=== PATIENT | male | born 1995 | race Caucasian/White ===

== ENCOUNTER 2018-01-02 15:15 | Emergency (ER) | payer OTHER ==
[2018-01-02 16:22] LABS: ABS Basophils 0 10^3/ul (0-0.2); ABS Eosinophils 0 10^3/ul (0-0.6); ABS Lymphocytes 1.3 10^3/ul (1.0-4.8); ABS Monocytes 0.5 10^3/ul (0-0.8); ABS Neutrophils 2.4 10^3/ul (1.5-7.7); ABS Nucleated RBC 0 10^3/ul; Eosinophil % 0.8 % (0-6); Hematocrit 45 % (42-52); Hemoglobin 15.7 g/dl (14.0-18.0); Lymphocyte % 31.4 % (25-47); Mean Corpuscular HGB Conc 35 g/dl (31-36); Mean Corpuscular Hemoglobin 32 pg (27-31); Mean Corpuscular Volume 91 fL (80-94); Mean Platelet Volume 8 um3 (7.4-10.4); Nucleated Red Blood Cells % 0.1; Platelet Count 180 10^3/ul (150-450); Red Blood Count 4.88 10^6/ul (4.0-5.4); Red Cell Distribution Width 13 % (10.5-15); White Blood Count 4.3 10^3/ul (3.5-10.8)
--- NOTE | 2018-01-02 16:48 | RAD ---
Indication: Right flank pain. CT of the abdomen and pelvis was performed without oral or IV contrast administration. Coronal and sagittal reconstructed images were obtained. The lung bases demonstrate no pleural fluid, nodules or masses. The heart demonstrates no pericardial effusion. The liver is normal in size. No focal lesions or intrahepatic ductal dilatation is noted. The spleen is normal. Pancreas demonstrates no mass or pancreatic duct dilatation. The common duct is not dilated. There is mild right hydronephrosis noted. There is a calculus in the distal right ureter likely measuring 5 mm just above the ureterovesicular junction. There is moderate degree of left hydronephrosis. A calculus is noted in the left renal collecting system measuring up to 5 mm. The distal left ureter is not dilated. Aorta and inferior vena cava are unremarkable. There are no dilated loops of bowel noted. The colon is filled with stool. Urinary bladder is otherwise unremarkable. The prostate is unremarkable. No free fluid is identified. IMPRESSION: There is suggestion of a calcification in the distal right ureter just above the ureterovesicular junction with mild right hydronephrosis. There is left hydronephrosis with a calculi in the left renal pelvis measuring 5 mm however this does not appear to be causing obstruction. The left renal pelvis appears to taper to normal size ureter distally. A UPJ obstruction is not excluded.
[2018-01-02 16:52] LABS: EGFR Non-African American 103.6 (>60)
[2018-01-02 17:51] LABS: Urine Appearance Cloudy; Urine Blood 3+ (Negative); Urine Ketones Negative (Negative); Urine Protein 2+(100 mg/dL) (Negative); Urine Specific Gravity 1.016 (1.010-1.030); Urine Urobilinogen Negative (Negative)
[2018-01-02 18:22] VITALS: BP 116/51
[2018-01-02 18:22] LABS: Urine Color Red
--- NOTE | 2018-01-03 14:11 | ED ---
Kourtney Castaneda Gabriel, scribed for Sunday Ro MD on 01/02/18 at 1550 . GI/ HPI - HPI Summary HPI Summary: This patient is a 22 year old M presenting to [facility] with a chief complaint of hematuria since this morning. The patient rates the pain 2/10 in severity. Patient reports light headedness and RLQ ABD pain. Patient denies BM trouble, dysuria, and nausea. Pt has a history of kidney stones but states his current pain is lower than usual and his hematuria is darker than usual. Last kidney stone was 2 months ago. Pt has had an appendectomy - History of Current Complaint Chief Complaint: EDFlankPain Time Seen by Provider: 01/02/18 15:30 Stated Complaint: URINATING BLOOD Hx Obtained From: Patient Onset/Duration: Still Present Timing: Constant, Lasting Hours Current Severity: Mild Pain Intensity: 2 Pain Radiates to: RLQ Associated Signs and Symptoms: Positive: Negative - BM trouble, dysuria, and nausea., Hematuria, Other: - light headedness and RLQ ABD pain. - Allergy/Home Medications Allergies/Adverse Reactions: Allergies Allergy/AdvReac Type Severity Reaction Status Date / Time No Known Allergies Allergy Verified 01/02/18 15:20 PMH/Surg Hx/FS Hx/Imm Hx Endocrine/Hematology History: Denies: Hx Anticoagulant Therapy, Hx Diabetes Cardiovascular History: Denies: Hx Aneurysm, Hx Angina History: Reports: Hx Kidney Stones - Surgical History Surgery Procedure, Year, and Place: Appendectomy Infectious Disease History: No Infectious Disease History: Denies: Traveled Outside the [place] in Last 30 Days - Family History Known Family History: Negative: Renal Disease, Respiratory Disease, Seizure Disorder - Social History Alcohol Use: Occasionally Hx Substance Use: No Substance Use Type: Reports: None Hx Tobacco Use: No Smoking Status (MU): Never Smoked Tobacco Review of Systems Gastrointestinal: Negative Positive: Abdominal Pain - RLQ pain . Negative: Nausea Positive: hematuria. Negative: dysuria Neurological: Other - light headedness All Other Systems Reviewed And Are Negative: Yes Physical Exam - Summary Physical Exam Summary: Appearance: The patient is well-nourished in no acute distress and in no acute pain. Skin: The skin is warm and dry and skin color reflects adequate perfusion. HEENT: The head is normocephalic and atraumatic. The pupils are equal and reactive. The conjunctivae are clear and without drainage. Nares are patent and without drainage. Mouth reveals moist mucous membranes and the throat is without erythema and exudate. The external ears are intact. The ear canals are patent and without drainage. The tympanic membranes are intact. Neck: the neck is supple with full range of motion and non-tender. There are no carotid bruits. There is no neck vein distension. Respiratory: Chest is non-tender. Lungs are clear to auscultation and breath sounds are symmetrical and equal. Cardiovascular: Heart is regular rate and rhythm. There is no murmur or rub auscultated. There is no peripheral edema and pulses are symmetrical and equal. Abdomen: The abdomen is soft with RLQ tenderness. There are normal bowel sounds heard in all four quadrants and there is no organomegaly palpated. Musculoskeletal: There is no back tenderness noted. Extremities are non-tender with full range of motion. There is good capillary refill. There is no peripheral edema or calf tenderness elicited. Neurological: Patient is alert and oriented to person, place and time. The patient has symmetrical motor strength in all four extremities. Cranial nerves are grossly intact. Deep tendon reflexes are symmetrical and equal in all four extremities. Psychiatric: The patient has an appropriate affect and does not exhibit any anxiety or depression. Triage Information Reviewed: Yes Vital Signs On Initial Exam: Initial Vitals Temp Pulse Resp BP Pulse Ox 98.2 F 78 18 123/66 98 01/02/18 15:18 01/02/18 15:18 01/02/18 15:18 01/02/18 15:18 01/02/18 15:18 Vital Signs Reviewed: Yes Diagnostics - Vital Signs Vital Signs Temp Pulse Resp BP Pulse Ox 01/02/18 15:18 98.2 F 78 18 123/66 98 - Laboratory Lab Results: Lab Results 01/02/18 01/02/18 01/02/18 Range/Units 16:05 16:05 16:05 WBC 4.3 (3.5-10.8) 10^3/ul RBC 4.88 (4.0-5.4) 10^6/ul Hgb 15.7 (14.0-18.0) g/dl Hct 45 (42-52) % MCV 91 (80-94) fL MCH 32 H (27-31) pg MCHC 35 (31-36) g/dl RDW 13 (10.5-15) % Plt Count 180 (150-450) 10^3/ul MPV 8 (7.4-10.4) um3 Neut % (Auto) 55.1 (38-83) % Lymph % (Auto) 31.4 (25-47) % Darke % (Auto) 12.0 H (1-9) % Eos % (Auto) 0.8 (0-6) % Baso % (Auto) 0.7 (0-2) % Absolute Neuts (auto) 2.4 (1.5-7.7) 10^3/ul Absolute Lymphs (auto) 1.3 (1.0-4.8) 10^3/ul Absolute Monos (auto) 0.5 (0-0.8) 10^3/ul Absolute Eos (auto) 0 (0-0.6) 10^3/ul Absolute Basos (auto) 0 (0-0.2) 10^3/ul Absolute Nucleated RBC 0 10^3/ul Nucleated RBC % 0.1 Sodium 138 (133-145) mmol/L Potassium 4.1 (3.5-5.0) mmol/L Chloride 103 (101-111) mmol/L Carbon Dioxide 30 (22-32) mmol/L Anion Gap 5 (2-11) mmol/L BUN 15 (6-24) mg/dL Creatinine 0.93 (0.67-1.17) mg/dL Est GFR ( Amer) 133.2 (>60) Est GFR (Non-Af Amer) 103.6 (>60) BUN/Creatinine Ratio 16.1 (8-20) Glucose 123 H (70-100) mg/dL Lactic Acid 0.7 (0.5-2.0) mmol/L Calcium 9.5 (8.6-10.3) mg/dL Total Bilirubin 0.70 (0.2-1.0) mg/dL AST 16 (13-39) U/L ALT 7 (7-52) U/L Alkaline Phosphatase 58 (34-104) U/L C-Reactive Protein < 1.00 (< 5.00) mg/L Total Protein 6.8 (6.4-8.9) g/dL Albumin 4.3 (3.2-5.2) g/dL Globulin 2.5 (2-4) g/dL Albumin/Globulin Ratio 1.7 (1-3) Lipase 16 (11.0-82.0) U/L Urine Color Urine Appearance Urine pH (5-9) Ur Specific Adah (1.010-1.030) Urine Protein (Negative) Urine Ketones (Negative) Urine Blood (Negative) Urine Nitrate (Negative) Urine Bilirubin (Negative) Urine Urobilinogen (Negative) Ur Leukocyte Esterase (Negative) Urine WBC (Auto) (Absent) Urine RBC (Auto) (Absent) Amorphous Crystals (Absent) Urine Bacteria (Absent) Urine Glucose (Negative) 01/02/18 Range/Units 17:33 WBC (3.5-10.8) 10^3/ul RBC (4.0-5.4) 10^6/ul Hgb (14.0-18.0) g/dl Hct (42-52) % MCV (80-94) fL MCH (27-31) pg MCHC (31-36) g/dl RDW (10.5-15) % Plt Count (150-450) 10^3/ul MPV (7.4-10.4) um3 Neut % (Auto) (38-83) % Lymph % (Auto) (25-47) % Darke % (Auto) (1-9) % Eos % (Auto) (0-6) % Baso % (Auto) (0-2) % Absolute Neuts (auto) (1.5-7.7) 10^3/ul Absolute Lymphs (auto) (1.0-4.8) 10^3/ul Absolute Monos (auto) (0-0.8) 10^3/ul Absolute Eos (auto) (0-0.6) 10^3/ul Absolute Basos (auto) (0-0.2) 10^3/ul Absolute Nucleated RBC 10^3/ul Nucleated RBC % Sodium (133-145) mmol/L Potassium (3.5-5.0) mmol/L Chloride (101-111) mmol/L Carbon Dioxide (22-32) mmol/L Anion Gap (2-11) mmol/L BUN (6-24) mg/dL Creatinine (0.67-1.17) mg/dL Est GFR ( Amer) (>60) Est GFR (Non-Af Amer) (>60) BUN/Creatinine Ratio (8-20) Glucose (70-100) mg/dL Lactic Acid (0.5-2.0) mmol/L Calcium (8.6-10.3) mg/dL Total Bilirubin (0.2-1.0) mg/dL AST (13-39) U/L ALT (7-52) U/L Alkaline Phosphatase (34-104) U/L C-Reactive Protein (< 5.00) mg/L Total Protein (6.4-8.9) g/dL Albumin (3.2-5.2) g/dL Globulin (2-4) g/dL Albumin/Globulin Ratio (1-3) Lipase (11.0-82.0) U/L Urine Color Red A Urine Appearance Cloudy Urine pH 7.0 (5-9) Ur Specific Adah 1.016 (1.010-1.030) Urine Protein 2+(100 mg/dl) H (Negative) Urine Ketones Negative (Negative) Urine Blood 3+ H (Negative) Urine Nitrate Negative (Negative) Urine Bilirubin Negative (Negative) Urine Urobilinogen Negative (Negative) Ur Leukocyte Esterase Negative (Negative) Urine WBC (Auto) 1+(6-10/hpf) H (Absent) Urine RBC (Auto) 3+(>10/hpf) H (Absent) Amorphous Crystals Present H (Absent) Urine Bacteria Absent (Absent) Urine Glucose Negative (Negative) Result Diagrams: 01/02/18 16:05 01/02/18 16:05 Lab Statement: Any lab studies that have been ordered have been reviewed, and results considered in the medical decision making process. - CT CT ABD/Pelvis CT Interpretation Completed By: Radiologist - There is suggestion of a calcification in the distal right ureter just above the ureterovesicular junction with mild right hydronephrosis. There is left hydronephrosis with a calculi in the left renal pelvis measuring 5 mm however this does not appear to be causing obstruction. The left renal pelvis appears to taper to normal size ureter distally. A UPJ obstruction is not excluded. Dr. Ro has reviewed this report. GIGU Course/Dx - Course Course Of Treatment: Mr. Avila preented with relatively mild RLQ pain. He has a history of kidney stones but didnt think this was bad enough to be a stone. He was found to have a 5mm right UVJ stone with some hydro. His U/A was equivocal. He was not interested in pain medications or antibiotics or even F/U with urology. He felt that he could pass it on his own. I expressed my concern that he should seek immediate care if he developed a fever or any new symptoms given his U/A result although I suspect it is not infected. - Diagnoses Provider Diagnoses: Kidney stones Discharge - Discharge Plan Condition: Stable Disposition: HOME Prescriptions: Tamsulosin CAP* [Flomax CAP*] 0.4 mg PO DAILY #7 cap traMADol TAB* [Ultram*] 50 mg PO Q6HR PRN #20 tab MDD 4 PRN Reason: Pain Patient Education Materials: Tramadol (By mouth), Tamsulosin (By mouth), Kidney Stones (ED) Referrals: [facility] [Primary Care Provider] - Arya Ledezma MD [Medical Doctor] - 4 Days Additional Instructions: Take ibuprofen as needed for pain. RETURN TO EMERGENCY DEPARTMENT FOR ANY NEW OR WORSENING SYMPTOMS The documentation as recorded by the Kourtney field Gabriel accurately reflects the service I personally performed and the decisions made by me, Sunday Ro MD.
== END 2018-01-02 18:21 | disposition home or self-care (01) ==
LOC: ED 15:15
DX: N13.2 Hydronephrosis with renal and ureteral calculous obstruction (principal); R31.9 Hematuria, unspecified
CPT/HCPCS: 36415; 74176; 80053; 81003; 81015; 83605; 83690; 85025; 86140; 99282

== ENCOUNTER 2018-10-17 13:24 | Emergency (ER) | payer OTHER ==
--- NOTE | 2018-10-17 13:54 | ED ---
Abdominal Pain/Male - HPI Summary HPI Summary: Pt is a 23 y/o male who presents to the ED c/o groin pain. The left groin pain radiates into his left hip. Pt has been feeling the intermittent discomfort for a few weeks, but the pain became worse today. He self-diagnosed a hernia in his left groin, because he can feel the hole and his organs. Pt can stick a finger in his hole. The pain is made worse by walking. He denies any urinary symptom or abnormal BMs. PMHx kidney stones. - History of Current Complaint Chief Complaint: EDAbdPain Stated Complaint: ABD PAIN Time Seen by Provider: 10/17/18 13:43 Hx Obtained From: Patient Onset/Duration: Gradual Onset, Lasting Weeks - 2-3, Worse Since Timing: Constant, Intermittent Severity Currently: Moderate Pain Intensity: 7 Pain Scale Used: 0-10 Numeric Location: Groin - left Radiates: Yes Radiates to: Other - left hip Aggravating Factor(s): Other: - walking Associated Signs And Symptoms: Positive: Negative - Allergies/Home Medications Allergies/Adverse Reactions: Allergies Allergy/AdvReac Type Severity Reaction Status Date / Time No Known Allergies Allergy Verified 10/17/18 13:32 PMH/Surg Hx/FS Hx/Imm Hx Endocrine/Hematology History: Denies: Hx Anticoagulant Therapy, Hx Diabetes Cardiovascular History: Denies: Hx Aneurysm, Hx Angina History: Reports: Hx Kidney Stones - Surgical History Surgery Procedure, Year, and Place: Appendectomy Infectious Disease History: No Infectious Disease History: Denies: Traveled Outside the [place] in Last 30 Days - Family History Known Family History: Negative: Renal Disease, Respiratory Disease, Seizure Disorder - Social History Alcohol Use: Occasionally Hx Substance Use: No Substance Use Type: Reports: None Hx Tobacco Use: No Smoking Status (MU): Never Smoked Tobacco Review of Systems Positive: Abdominal Pain. Negative: Other - abnormal BM Genitourinary: Negative All Other Systems Reviewed And Are Negative: Yes Physical Exam - Summary Physical Exam Summary: Appearance: The patient is well-nourished in no acute distress and in no acute pain. Skin: The skin is warm and dry and skin color reflects adequate perfusion. HEENT: The head is normocephalic and atraumatic. The pupils are equal and reactive. The conjunctivae are clear and without drainage. Nares are patent and without drainage. Mouth reveals moist mucous membranes and the throat is without erythema and exudate. The external ears are intact. The ear canals are patent and without drainage. The tympanic membranes are intact. Neck: The neck is supple with full range of motion and non-tender. There are no carotid bruits. There is no neck vein distension. Respiratory: Chest is non-tender. Lungs are clear to auscultation and breath sounds are symmetrical and equal. Cardiovascular: Heart is regular rate and rhythm. There is no murmur or rub auscultated. There is no peripheral edema and pulses are symmetrical and equal. Abdomen: The abdomen is soft. There are normal bowel sounds heard in all four quadrants and there is no organomegaly palpated. Mild suprapubic tenderness on left side. No hernias appreciated. Musculoskeletal: There is no back tenderness noted. Extremities are non-tender with full range of motion. There is good capillary refill. There is no peripheral edema or calf tenderness elicited. Neurological: Patient is alert and oriented to person, place and time. The patient has symmetrical motor strength in all four extremities. Cranial nerves are grossly intact. Deep tendon reflexes are symmetrical and equal in all four extremities. Psychiatric: The patient has an appropriate affect and does not exhibit any anxiety or depression. Triage Information Reviewed: Yes Vital Signs On Initial Exam: Initial Vitals Temp Pulse Resp BP Pulse Ox 98.6 F 74 18 137/86 97 10/17/18 13:28 10/17/18 13:28 10/17/18 13:28 10/17/18 13:28 10/17/18 13:28 Vital Signs Reviewed: Yes Diagnostics - Vital Signs Vital Signs Temp Pulse Resp BP Pulse Ox 10/17/18 13:28 98.6 F 74 18 137/86 97 - Laboratory Lab Statement: Any lab studies that have been ordered have been reviewed, and results considered in the medical decision making process. Abdominal Pain Fem Course/Dx - Course Course Of Treatment: Mr. Avila presented to the emergency department concerned with the pain in his left groin. It's been bothering him mildly on and off for about a week but has seemed worse today. If he is up on his feet for too long he feels a bulge but it goes away if he lies down. When I see him he is in no distress, nontoxic in appearance and his vital signs are stable. He has been lying supine and is mildly tender in the left suprapubic area. I cannot appreciate a hernia. It was my recommendation that he follow up with general surgery and we discussed this incarcerated hernias and strangulated hernias. - Diagnoses Provider Diagnoses: Hernia Discharge - Sign-Out/Discharge Documenting (check all that apply): Patient Departure - Discharge - Discharge Plan Condition: Stable Disposition: HOME Patient Education Materials: Inguinal Hernia (ED) Referrals: Brandon Last MD [Medical Doctor] - (Next week) [facility], [Primary Care Provider] - Additional Instructions: RETURN TO THE ED WITH ANY NEW OR WORSENING SYMPTOMS. - Billing Disposition and Condition Condition: STABLE Disposition: Home - Attestation Statements Document Initiated by Scribe: Yes Documenting Scribe: Risa Hernandez Provider For Whom Derick is Documenting (Include Credential): Sunday Ro MD Scribe Attestation: Risa Castaneda, scribed for Sunday Ro MD on 10/17/18 at 1409. Scribe Documentation Reviewed: Yes Provider Attestation: The documentation as recorded by the Risa field accurately reflects the service I personally performed and the decisions made by me, Sunday Ro MD Status of Scribe Document: Viewed
[2018-10-17 14:15] VITALS: BP 141/77
== END 2018-10-17 14:15 | disposition home or self-care (01) ==
LOC: ED 13:24
DX: K46.9 Unspecified abdominal hernia without obstruction or gangrene (principal); Z87.442 Personal history of urinary calculi
CPT/HCPCS: 99282

== ENCOUNTER 2018-11-01 09:29 | Observation (INO) | payer OTHER ==
[2018-11-01] MEDS ORDERED: Ketorolac INJ* 30 MG/ML 1 ML VIAL IV PUSH ONE (09:42)
[2018-11-01] MEDS ORDERED: Metoclopramide IV* 5 MG/ML 2 ML VIAL IV ONE (09:42)
[2018-11-01] MEDS ORDERED: Morphine VIAL* 4 MG/ML VIAL (1 ml vial) IV ONE (09:42)
--- NOTE | 2018-11-01 09:48 | ED ---
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 He endorses pain 9 out of 10, constant and stabbing. Denies fevers, sweats, chills. Patient is diaphoretic on exam. He denies any urinary symptoms, including burning, urgency, frequency or obstructive symptoms. Denies any nausea, vomiting, diarrhea, constipation. He states he is otherwise healthy and has no other complaints. - History of Current Complaint Chief Complaint: EDFlankPain Stated Complaint: LEFT SIDE ABDOMINAL PAIN Time Seen by Provider: 11/01/18 09:37 Hx Obtained From: Patient Onset/Duration: Sudden Onset Timing: Constant Severity Initially: Moderate Severity Currently: Moderate Pain Intensity: 6 Pain Scale Used: 0-10 Numeric Location: Discrete At: LLQ, Flank Radiates: No Character: Sharp Aggravating Factor(s): Nothing Alleviating Factor(s): Nothing Associated Signs And Symptoms: Positive: Diaphoresis, Back Pain, Urinary Symptoms, Nausea, Vomiting - Risk Factors Testicular Torsion: Negative Cardiac Risk Factors: Negative - Allergies/Home Medications Allergies/Adverse Reactions: Allergies Allergy/AdvReac Type Severity Reaction Status Date / Time No Known Allergies Allergy Verified 10/17/18 13:32 Home Medications: Home Medications NK [No Home Medications Reported] 11/01/18 [History Confirmed 11/01/18] PMH/Surg Hx/FS Hx/Imm Hx Previously Healthy: Yes Endocrine/Hematology History: Denies: Hx Anticoagulant Therapy, Hx Diabetes Cardiovascular History: Denies: Hx Aneurysm, Hx Angina History: Reports: Hx Kidney Stones - Surgical History Surgery Procedure, Year, and Place: Appendectomy - Immunization History Hx Pertussis Vaccination: No Immunizations Up to Date: Yes Infectious Disease History: No Infectious Disease History: Denies: Traveled Outside the [place] in Last 30 Days - Family History Known Family History: Negative: Renal Disease, Respiratory Disease, Seizure Disorder - Social History Occupation: Employed Part-time Lives: Alone Alcohol Use: Occasionally Hx Substance Use: No Substance Use Type: Reports: None Substance Use Comment - Amount & Last Used: weekly Hx Tobacco Use: No Smoking Status (MU): Never Smoked Tobacco Review of Systems Constitutional: Negative Negative: Fever, Chills, Fatigue, Skin Diaphoresis Negative: Epistaxis, Dental Pain Negative: Palpitations, Chest Pain Positive: Abdominal Pain Positive: see HPI, flank pain, pain. Negative: burning, dysuria, discharge, frequency Musculoskeletal: Negative Skin: Negative All Other Systems Reviewed And Are Negative: Yes Physical Exam Triage Information Reviewed: Yes Vital Signs On Initial Exam: Initial Vitals Temp Pulse Resp BP Pulse Ox 99.7 F 57 18 132/94 98 11/01/18 09:34 11/01/18 09:34 11/01/18 09:34 11/01/18 09:34 11/01/18 09:34 Vital Signs Reviewed: Yes Appearance: Positive: Well-Nourished Skin: Positive: Warm, Skin Color Reflects Adequate Perfusion Head/Face: Positive: Normal Head/Face Inspection Eyes: Positive: EOMI, Conjunctiva Clear Neck: Positive: No Lymphadenopathy Respiratory/Lung Sounds: Positive: Clear to Auscultation Cardiovascular: Positive: RRR, Pulses are Symmetrical in both Upper and Lower Extremities Abdomen Description: Positive: CVA Tenderness (L), Other: - tenderness to the LLQ Musculoskeletal: Positive: Normal, Strength/ROM Intact Neurological: Positive: Speech Normal Psychiatric: Positive: Normal, Affect/Mood Appropriate AVPU Assessment: Alert Diagnostics - Vital Signs Vital Signs Temp Pulse Resp BP Pulse Ox 11/01/18 09:34 99.7 F 57 18 132/94 98 - Laboratory Result Diagrams: 11/01/18 10:15 11/01/18 10:15 Lab Statement: Any lab studies that have been ordered have been reviewed, and results considered in the medical decision making process. Re-Evaluation - Re-Evaluation First Eval Change: Improved - sxs improved after toradol and morphine Abdominal Pain Fem Course/Dx - Course Course Of Treatment: During the course treatment, the patient's evaluated for left-sided severe flank pain. He is ordered morphine 4 mg, Reglan 10 mg and Toradol 30 mg with good effect. Labs obtained and CT abd/pelvis obtained. Possible hx of renal stenosis to the L side, but patient is unsure. States he was dx with something when he was younger to the ureter, but does not recall. Appears in acute distress on arrival. He improves with toradol 30mg and reglan 10mg but refuses morphine. Discussed case with Dr. Ly at 11am who suggests admission d/t requiring stent placement at 5pm. Discussed with Dr. Enciso at 11:10a who agrees to see patient. Patient continues to have controlled symptoms. UA still pending while admitting. - Diagnoses Differential Diagnosis/HQI/PQRI: Renal Colic, Ureteral Stone, Urinary Tract Infection Provider Diagnoses: Ureteral stone, Hydronephrosis - Provider Notifications Discussed Care Of Patient With: Mikael Ly - Will require stent placement - surgery at 5pm NPO Time Discussed With Above Provider: 11:00 Instructed by Provider To: Admit As Inpatient Discharge - Sign-Out/Discharge Documenting (check all that apply): Patient Departure - Discharge Plan Condition: Fair Disposition: ADMITTED TO [facility] - Billing Disposition and Condition Condition: FAIR Disposition: Admitted to [facility]
[2018-11-01 10:25] LABS: ABS Basophils 0 10^3/ul (0-0.2); ABS Eosinophils 0 10^3/ul (0-0.6); ABS Lymphocytes 0.5 10^3/ul (1.0-4.8); ABS Monocytes 0.9 10^3/ul (0-0.8); ABS Neutrophils 7.2 10^3/ul (1.5-7.7); ABS Nucleated RBC 0.1 10^3/ul; Eosinophil % 0 %; Hematocrit 47 % (42-52); Hemoglobin 16.7 g/dl (14.0-18.0); Lymphocyte % 6.1 %; Mean Corpuscular HGB Conc 36 g/dl (31-36); Mean Corpuscular Hemoglobin 32 pg (27-31); Mean Corpuscular Volume 90 fL (80-94); Mean Platelet Volume 7.4 fL (7.4-10.4); Nucleated Red Blood Cells % 0.5; Platelet Count 264 10^3/ul (150-450); Red Blood Count 5.21 10^6/ul (4.00-5.40); Red Cell Distribution Width 13 % (10.5-15); White Blood Count 8.7 10^3/ul (3.5-10.8)
[2018-11-01 10:43] LABS: EGFR Non-African American 75.7 (>60)
[2018-11-01] MEDS ORDERED: Morphine VIAL* 4 MG/ML VIAL (1 ml vial) IV PRN (11:58)
[2018-11-01] MEDS ORDERED: Ketorolac INJ* 15 MG/ML 1 ML VIAL IV PUSH PRN (12:02)
[2018-11-01] MEDS ORDERED: Magnesium Sulfate 2 GM IV* 2 GM/50 ML BAG IVPB ONE (12:27)
[2018-11-01] MEDS: NS 0.9% 1000 ML* 1,000 ML IV SCH ×2 (12:31→13:50)
[2018-11-01 14:51] LABS: Urine Appearance Cloudy; Urine Blood 2+ (Negative); Urine Color Yellow; Urine Ketones 2+ (Negative); Urine Protein 1+(30 mg/dL) (Negative); Urine Red Blood Cell 3+(>10/hpf) (Absent); Urine Specific Gravity 1.029 (1.010-1.030); Urine Urobilinogen Negative (Negative); Urine White Blood Cell 2+(11-20/hpf) (Absent)
[2018-11-01] MEDS ORDERED: Famotidine IV* 10 MG/ML 2 ML (20 mg) IV SLOW PU ONE (16:50)
[2018-11-01] MEDS ORDERED: Dexamethasone IV* 4 MG/ML 1 ML (4 MG) IV SLOW PU ONE (16:50)
[2018-11-01] MEDS ORDERED: Morphine VIAL* 4 MG/ML VIAL (1 ml vial) ONE (17:14)
[2018-11-01] MEDS ORDERED: Famotidine IV* 10 MG/ML 2 ML (20 mg) ONE (17:14)
[2018-11-01] MEDS ORDERED: Dexamethasone IV* 4 MG/ML 1 ML (4 MG) ONE (17:15)
[2018-11-01] MEDS ORDERED: Iohexol 180 (CONTRAST) 10 ML SDV IV ONE (17:54)
[2018-11-01] MEDS ORDERED: Propofol* 10 MG/ML 20 ML BTL ONE (18:09)
[2018-11-01] MEDS ORDERED: Lidocaine 2% PF * 5 ML VIAL ONE (18:09)
[2018-11-01] MEDS ORDERED: fentaNYL* 50 MCG/ML 2 ML VIAL (100 MCG VIAL) ONE (18:09)
[2018-11-01] MEDS ORDERED: oxyCODONE/Acetamin 5/325 MG* TAB PO PRN (18:19)
[2018-11-01] MEDS ORDERED: DiMENhydriNATE IV* 50 MG/ML VIAL IV PUSH PRN (18:19)
[2018-11-01] MEDS ORDERED: fentaNYL* 50 MCG/ML 2 ML VIAL (100 MCG VIAL) IV PRN (18:19)
[2018-11-01] MEDS ORDERED: Naloxone* 0.4 MG/ML 1 ML VIAL IV PRN (18:19)
[2018-11-01] MEDS ORDERED: HYDROcodone/ACETAMIN 5-325 MG* 1 TAB PO PRN (18:19)
[2018-11-01] MEDS ORDERED: cefTRIAXone(*) 2 GM ADDV.VIAL IVPB ONE (18:22)
[2018-11-01] MEDS ORDERED: Ondansetron INJ* 2 MG/ML VIAL ONE (18:55)
--- NOTE | 2018-11-01 19:05 | HP ---
CC: * HISTORY AND PHYSICAL: DATE OF ADMISSION: 11/01/18 PROVIDER: Toshia Garcia NP PRIMARY CARE PROVIDER: [facility]. ATTENDING PHYSICIAN WHILE IN THE HOSPITAL: Dr. Carlitos Enciso * (dictated by Toshia Garcia NP). CHIEF COMPLAINT: Left-sided flank pain. HISTORY OF PRESENT ILLNESS: The patient reports that he developed left-sided flank on Sunday that became progressively worse over the past 2 days. Last night the pain was unbearable. The patient states that he was nauseated and was vomiting due to the pain in his left side. Due to the pain not improving, the patient presented to the emergency room for further evaluation. He denies any fever or chills. Denies any loss of appetite. He denies any chest pain or edema, cough, hemoptysis or shortness of breath. He does report nausea and vomiting. Denies any diarrhea. He does report left flank and lower abdominal pain. Denies any gross hematuria, dysuria, frequency, urgency or burning with urination. Denies any focal weakness or sensory loss. Denies any visual complaints. Denies any dysphagia, arthralgias, myalgias, rashes, lesions, open sores, psychosis, or anxiety. While in the emergency room, the patient had routine lab work drawn and a CT of the abdomen and pelvis, which showed severe left-sided hydronephrosis with a 0.7 -cm calculus in the left UPJ, progressed from the previous exam, mildly enlarged prostate. The emergency room contacted Dr. Ly who will see the patient and take him to the OR for stent placement at 5 p.m. today. The patient was made n.p.o. PAST MEDICAL HISTORY: Significant for: 1. Hernia on the left. 2. Left ureteral stenosis. PAST SURGICAL HISTORY: Appendectomy. HOME MEDICATIONS: None. ALLERGIES: No known drug allergies. FAMILY HISTORY: No reported history of cardiac or diabetes. Does report grandfather with a history of unknown cancer. SOCIAL HISTORY: Reports rare tobacco use. One to two times a week he does drink alcohol. One to two times a week he also reports smoking marijuana. He is currently a student at [employer]. He lives with a roommate. Surrogate decision maker in the event he is unable to make his own decisions is his girlfriend Delicia. He is a full code. REVIEW OF SYSTEMS: There is no documented fever. There has been no unintended weight loss. Denies any chest pain or edema. Denies any cough, hemoptysis, or shortness of breath. He does report nausea and vomiting. Denies any diarrhea. Does report left-sided flank pain. Denies any gross hematuria or dysuria. Denies any focal weakness or sensory loss. Denies any visual complaints. Denies any dysphagia. Denies any arthralgias, myalgias, rashes, lesions, psychosis, or anxiety. PHYSICAL EXAMINATION GENERAL: At this time, Mr. Avila is a 23-year-old male who presented to the emergency room for evaluation of left-sided abdominal pain. He is resting on the stretcher. He does not appear to be in any acute distress. His color is pink. VITAL SIGNS: Blood pressure 144/77, heart rate 86, respirations 16, O2 saturation 97% on room air, temperature was 99.7 on arrival to the emergency room. HEENT: Head is atraumatic, normocephalic. Eyes: EOMs are intact. Sclerae anicteric and not pale. Oral mucosa appears to be moist. NECK: Supple. LUNGS: Clear to auscultation bilaterally. No wheezes, rales, or rhonchi. CARDIAC: S1, S2. Regular rate and rhythm. No murmurs, rubs, or gallops. ABDOMEN: Soft and nontender. He does have positive left-sided CVA tenderness. Bowel sounds are present x4. EXTREMITIES: Pulses are +2 bilaterally. He is able to move all 4 extremities with 5/5 strength. NEUROLOGIC: He is awake, alert, oriented x3. Speech is clear. Thought process is intact. There is no gross focal deficit. SKIN: Intact. DIAGNOSTIC STUDIES/LAB DATA: WBCs are 8.7, RBCs 5.21, hemoglobin 16.7, hematocrit is 47, platelet count 264. Sodium 139, potassium 3.9, chloride 100, carbon dioxide was 25, anion gap of 14, BUN was 17, creatinine 1.21, glucose was 122, lactic acid 1.6, calcium 10.4, magnesium 1.6. Urine is currently pending. CT of the abdomen and pelvis showed severe left-sided hydronephrosis with a 0.7- cm calculus of the left ureteropelvic junction, progressed from the previous exam on December of 2017, mildly enlarged prostate. ASSESSMENT AND PLAN: Mr. Avila is a 23-year-old male who presented to the emergency room with complaints of left-sided flank pain, history of kidney stones, and left ureteral stenosis, who was found to have a stone in the left UPJ with severe hydronephrosis. He will be admitted under observation for: 1. Left-sided abdominal pain, suspect this is related to his left renal calculus that is in the left UPJ. The ER contacted Dr. Ly from Urology, who will take the patient to the OR at 5 p.m. today for stent placement. Urinalysis is currently pending. If the urinalysis is positive for urinary tract infection, I will contact Dr. Ly for his recommendations on antibiotics prior to the OR as per Dr. Ly's request. 2. Hypomagnesemia. I will give him 2 g of magnesium IV. 3. Acute kidney injury, suspect this is related to renal calculus in the left UPJ. We will repeat a BMP in the a.m. and give gentle hydration overnight. I will avoid nephrotoxic medications at this time. 4. FEN: He is n.p.o. until after surgery. 5. DVT prophylaxis: He is low risk. We will encourage ambulation. 6. Code status is full code. TIME SPENT: Time spent on this admission was 60 minutes, greater than half the time was spent [id number] with the patient obtaining my history and physical, the other half of the time was spent going over my plan of care and implementing my plan of care. I have discussed this with my attending, Dr. Carlitos Enciso, and he is in agreement with my plan. TOSHIA GARCIA, WHANAU SUPPORT WORKER [id number]/[facility] #: [id number] ALEXIS
[2018-11-01] MEDS ORDERED: HYDROcodone/ACETAMIN 5-325 MG* 1 TAB ONE (19:50)
[2018-11-01 20:27] VITALS: BP 145/88
--- NOTE | 2018-11-02 13:50 | OP ---
CC: Dr. Corby Nash, fax #[phone] OPERATIVE REPORT: DATE OF OPERATION: 11/01/18 DATE OF : [birth year] SURGEON: Mikael Ly MD ANESTHESIOLOGIST: Dr. Steven Jade. ANESTHESIA: General. PRE-OP DIAGNOSES: 1. 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 2. Left proximal ureteral calculus (7 mm). POST-OP DIAGNOSES: 1. 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 2. Left ureteral calculus (7 mm) at the UPJ level. 3. Severe left hydronephrosis due to above. OPERATIVE PROCEDURE: 1. Cystoscopy. 2. Left retrograde pyelography. 3. Placement of left ureteral stent (6-Saudi Arabian). 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 He did not have any fever or chills. His urinalysis was negative. Noncontrast CT of the abdomen and pelvis showed severe left hydronephrosis with thinning out of the renal cortex and a markedly dilated renal pelvis and a 7 mm calculus in the area of the ureteropelvic junction or proximal ureter. The appearance of the Left kidney was consistent with chronic obstruction, secondary to congenital UPJ obstruction. No other abnormal calcifications were noted. No other abnormalities were seen. The right kidney looked normal. Upon reviewing his past records at our Hospital, Yrn was previously seen in [place] [facility] [place] with hematuria and RLQ pain. At that time CT showed a 5 mm calculus in distal Rt ureter, with mild Rt hydronephrosis, and he had Lt hydronephrosis with a 5 mm non obstructing calculus in the left renal pelvis. He was not seen by our office at that visit. By history, the patient reports that he had frequent episodes of left flank pain and may have passed some gravel in the past. He has been followed by Dr. Corby Nash, urologist in [place], who is planning to perform what sounded like retrograde pyelogram as a work up for the hydronephrosis. Because of the above history and findings, and the acute colic, and the size of the calculus, the patient is taken to the operating room on an urgent basis for left ureteral stent placement. PATHOLOGY AT CYSTOSCOPY: The penile and bulbar urethrae looked normal. The prostatic urethra was short and open. Examination of the bladder showed one orthotopic orifice on each side. The orifices looked normal. The bladder wall looked normal without any suspicious lesions, diverticuli or calculi. At fluoroscopy, a radiopaque calculus was noted in the area of the proximal ureter. Upon left retrograde pyelography, there was tortuosity and obstruction of the ureter at the level of the ureteropelvic junction. A guidewire coiled at the level of the UPJ and could not be introduced into the renal pelvis. A glidewire was used and after several attempts was successfully introduced inside the renal pelvis. Retrograde pyelography showed severe left hydronephrosis. There was prompt hydronephrotic drip noted from the left kidney. The urine from the left kidney looked clear. DESCRIPTION OF PROCEDURE: After successful general anesthesia, the patient was placed in the lithotomy position and was prepped and draped for cystoscopy. Cystoscopy was performed. The bladder was inspected and the above findings were noted. Under fluoroscopy guidance, a flexible-tip guidewire was introduced into the left distal ureter. A size 5-Saudi Arabian open-ended catheter was fed on top of the guidewire and positioned in the distal ureter. Retrograde pyelography was then performed demonstrating the above pathology. The flexible-tip guidewire was then introduced into the proximal ureter. It coiled and could not be introduced past the ureteropelvic junction. A glidewire was then used, and after several attempts, was successfully passed inside the renal pelvis and the tortuosity at the ureteropelvic junction was straightened. The open-ended catheter was then fed on top of the glidewire and introduced inside the renal pelvis. Additional contrast was injected demonstrating the collecting system. The open- ended catheter was then removed over a guidewire and a size 6-Saudi Arabian stent was then placed with the proximal end coiling in the renal pelvis above the level of the ureteropelvic junction and the distal end coiled inside the bladder. There was good drainage of contrast from the kidney and no extravasation. The patient tolerated the procedure well and left the operating room in good condition. The findings are consistent with a congenital ureteropelvic junction obstruction with severe left hydronephrosis. The plan is to leave the stent in place. Yrn will be going home in [place], [place], for the Holidays. He has an upcoming appointment with Dr. Nash. From the findings on the CT, it is likely that Yrn will need a pyelopasty with removal of the renal calculus. The imaging studies done at our hospital are provided to the patient, and he will to take the CD with him to Dr. Nash for his upcoming consultation. A copy of this report will be faxed to Dr. Nash. I asked Yrn to call my office if the stent has not been removed or exchanged in 6 weeks. [id number]/[facility] #: [id number] MTDD
== END 2018-11-01 20:38 | disposition home or self-care (01) ==
LOC: ED 09:29 → SSU 11:58
PROVIDERS: ADMIT Internal Medicine; ATTEND Internal Medicine
DX: N20.1 Calculus of ureter (principal); N13.30 Unspecified hydronephrosis; R10.9 Unspecified abdominal pain; R10.84 Generalized abdominal pain; N35.919 Unspecified urethral stricture, male, unspecified site; M54.9 Dorsalgia, unspecified; R11.2 Nausea with vomiting, unspecified
CPT/HCPCS: 36415; 74176; 74420; 80053; 81003; 81015; 83605; 83690; 83735; 85025; 86140; 87086; 96361; 96374; 96375; 96376; 99283; G0378; J0696; J1100; J1885; J2270; J2405; J2704; J2765; J3010; J3475

== ENCOUNTER → 2019-01-21 15:03 | Emergency (ER) | payer OTHER ==
[2019-01-21 15:45] LABS: Urine Appearance Cloudy; Urine Bacteria Absent (Absent); Urine Bilirubin Negative (Negative); Urine Blood 3+ (Negative); Urine Color Yellow; Urine Glucose Negative (Negative); Urine Ketones Negative (Negative); Urine Nitrite Negative (Negative); Urine Protein 1+(30 mg/dL) (Negative); Urine Red Blood Cell 3+(>10/hpf) (Absent); Urine Urobilinogen Negative (Negative); Urine White Blood Cell 3+(>20/hpf) (Absent)
--- NOTE | 2019-01-21 16:00 | ED ---
GI/ HPI - HPI Summary HPI Summary: A 23 y/o male presents to [facility] with a chief complaint of hematuria since . The patient reports that one year ago he had kidney stones and a left uretal stent placed by Dr. Ly. On 12/05/18 he had his left uretal stent replaced and had lithotripsy. He claims that since then his pain has been getting worse and he has been bleeding clots in his urine. At triage the patient rated his pain as a 1/10 in severity. He claims that he has had difficulty going to class because walking aggravates his pain. - History of Current Complaint Chief Complaint: EDUrogenitalProblems Time Seen by Provider: 01/21/19 15:27 Stated Complaint: PER PT CLOTTING IN URITAL STENT/MOBILITY PROBLEM Hx Obtained From: Patient Onset/Duration: Started Weeks Ago, Still Present Timing: Constant Severity: Mild Current Severity: Mild Pain Intensity: 1 - out of 10 Additional Locations for Males: Penis Pain Characteristics: Unable to describe Associated Signs and Symptoms: Positive: Dysuria. Negative: Diaphoresis Aggravating Factor(s): Walking/Exertion Alleviating Factor(s): Nothing - Allergy/Home Medications Allergies/Adverse Reactions: Allergies Allergy/AdvReac Type Severity Reaction Status Date / Time No Known Allergies Allergy Verified 01/21/19 15:11 PMH/Surg Hx/FS Hx/Imm Hx Endocrine/Hematology History: Denies: Hx Anticoagulant Therapy, Hx Diabetes Cardiovascular History: Denies: Hx Aneurysm, Hx Angina History: Reports: Hx Kidney Stones Sensory History: Denies: Hx Contacts or Glasses, Hx Hearing Aid Opthamlomology History: Denies: Hx Contacts or Glasses - Surgical History Surgery Procedure, Year, and Place: Appendectomy, left uretal stent Infectious Disease History: No Infectious Disease History: Denies: Traveled Outside the [place] in Last 30 Days - Family History Known Family History: Negative: Renal Disease, Respiratory Disease, Seizure Disorder - Social History Alcohol Use: Occasionally Hx Substance Use: No Substance Use Type: Reports: Marijuana Substance Use Comment - Amount & Last Used: weekly Hx Tobacco Use: No Smoking Status (MU): Never Smoked Tobacco Type: Cigarettes Review of Systems Negative: Fever Positive: dysuria, hematuria All Other Systems Reviewed And Are Negative: Yes Physical Exam - Summary Physical Exam Summary: Appearance: The patient is well-nourished in no acute distress and in no acute pain. Skin: The skin is warm and dry and skin color reflects adequate perfusion. HEENT: The head is normocephalic and atraumatic. The pupils are equal and reactive. The conjunctivae are clear and without drainage. Nares are patent and without drainage. Mouth reveals moist mucous membranes and the throat is without erythema and exudate. The external ears are intact. The ear canals are patent and without drainage. The tympanic membranes are intact. Neck: The neck is supple with full range of motion and non-tender. There are no carotid bruits. There is no neck vein distension. Respiratory: Chest is non-tender. Lungs are clear to auscultation and breath sounds are symmetrical and equal. Cardiovascular: Heart is regular rate and rhythm. There is no murmur or rub auscultated. There is no peripheral edema and pulses are symmetrical and equal. Abdomen: The abdomen is soft and non-tender. There are normal bowel sounds heard in all four quadrants and there is no organomegaly palpated. Musculoskeletal: There is no back tenderness noted. Extremities are non-tender with full range of motion. There is good capillary refill. There is no peripheral edema or calf tenderness elicited. Neurological: Patient is alert and oriented to person, place and time. The patient has symmetrical motor strength in all four extremities. Cranial nerves are grossly intact. Deep tendon reflexes are symmetrical and equal in all four extremities. Psychiatric: The patient has an appropriate affect and does not exhibit any anxiety or depression. Triage Information Reviewed: Yes Vital Signs On Initial Exam: Initial Vitals Temp Pulse Resp BP Pulse Ox 98.6 F 75 18 135/88 99 01/21/19 15:08 01/21/19 15:08 01/21/19 15:08 01/21/19 15:08 01/21/19 15:08 Vital Signs Reviewed: Yes Diagnostics - Vital Signs Vital Signs Temp Pulse Resp BP Pulse Ox 01/21/19 15:08 98.6 F 75 18 135/88 99 - Laboratory Lab Results: Lab Results 01/21/19 Range/Units 15:32 Urine Color Yellow Urine Appearance Cloudy Urine pH 7.0 (5-9) Ur Specific [place] 1.010 (1.010-1.030) Urine Protein 1+(30 mg/dl) A (Negative) Urine Ketones Negative (Negative) Urine Blood 3+ A (Negative) Urine Nitrate Negative (Negative) Urine Bilirubin Negative (Negative) Urine Urobilinogen Negative (Negative) Ur Leukocyte Esterase 3+ A (Negative) Urine WBC (Auto) 3+(>20/hpf) A (Absent) Urine RBC (Auto) 3+(>10/hpf) A (Absent) Urine Bacteria Absent (Absent) Urine Glucose Negative (Negative) Lab Statement: Any lab studies that have been ordered have been reviewed, and results considered in the medical decision making process. - Radiology abdomen x-ray Radiology Interpretation Completed By: ED Physician Summary of Radiographic Findings: two small stones in left kidney, stent in place. Pending official imaging report. - Ultrasound No standard instances Ultrasound Interpretation Completed By: Radiologist Summary of Ultrasound Findings: RENAL ULTRASOUND IMPRESSION: MODERATE TO SEVERE LEFT HYDRONEPHROSIS WITH STENT IN PLACE SUGGESTIVE OF. STENT MALFUNCTION VERSUS A CHRONICALLY DISTENDED COLLECTING SYSTEM. ED physician has reviewed this imaging report. Re-Evaluation - Re-Evaluation First Eval Re-Evaluation Time: 18:45 Change: Unchanged Comment: Discussed results GIGU Course/Dx - Course Course Of Treatment: Mr. Avila was seen here back in October with an obstructing stone and left hydronephrosis. A stent was placed and he followed up with his urologist back in [facility] who performed a lithotripsy and replace the stent. This was in the middle of November. He's had left sided flank pain ever since along with gross hematuria. It's been getting worse and he came into the department today. He denies any fevers or chills or nausea and vomiting. He was nontoxic in appearance with stable vital signs. A urinalysis revealed 3+ blood, 3+ WBCs, 3+ RBCs, no nitrates and no bacteria. Ultrasound of his left flank revealed moderate to severe hydronephrosis. I discussed the case with Dr. Ly who knows the patient. He feels that the hydronephrosis is likely chronic as he has some UPJ obstruction chronically. He may need to have his stent changed. At this point we will treat him with antibiotics and follow-up with Dr. Ly this week. - Diagnoses Provider Diagnoses: UTI (urinary tract infection), Hydronephrosis - Physician Notifications Discussed Care Of Patient With: Mikael Ly Time Discussed With Above Provider: 18:05 Instructed by Provider To: Other - Recommended further testing Discharge - Sign-Out/Discharge Documenting (check all that apply): Patient Departure - DC Patient Received Moderate/Deep Sedation with Procedure: No - Discharge Plan Condition: Stable Disposition: HOME Patient Education Materials: Urinary Tract Infection in Men (DC), Hydronephrosis (ED) Referrals: Mikael Ly MD [Medical Doctor] - [facility] [place] [facility] REFERRAL [Outside] (2-3 days) Additional Instructions: Follow up with Dr. Ly. Return to the ED if you experience any new or worsening symptoms. - Billing Disposition and Condition Condition: STABLE Disposition: Home - Attestation Statements Document Initiated by Scribe: Yes Documenting Scribe: Ryan Mello Provider For Whom Scribe is Documenting (Include Credential): Sunday Ro MD Scribe Attestation: Ryan Castaneda, scribed for Sunday Ro MD on 01/21/19 at 1915. Scribe Documentation Reviewed: Yes Provider Attestation: The documentation as recorded by the Ryan field accurately reflects the service I personally performed and the decisions made by me, Sunday Ro MD Status of Scribe Document: Viewed
[2019-01-21 19:04] VITALS: BP 120/71
== END | disposition home or self-care (01) ==
LOC: ED 15:03
DX: N39.0 Urinary tract infection, site not specified (principal); R31.9 Hematuria, unspecified; N13.2 Hydronephrosis with renal and ureteral calculous obstruction; Z96.0 Presence of urogenital implants
CPT/HCPCS: 74018; 76775; 81003; 81015; 87086; 99282